=== PATIENT | male | born 2000 | race Two or more races ===

== ENCOUNTER 2024-02-01 21:54 | Emergency (ER) | payer BC, OTHER ==
[~2024-02-01] VITALS: Ht 180.3 cm; Wt 77.1 kg
[2024-02-01 22:02] VITALS: TEMP 98.2
[2024-02-01 22:32] LABS: BASOPHILS % (AUTO) 0.4 % (0.0-2.0); EOSINOPHILS # (AUTO) 0.1 K/uL (0.0-0.7); EOSINOPHILS % (AUTO) 2.2 % (0.0-6.0); HEMATOCRIT 39 % (39-51); HEMOGLOBIN 13.8 g/dL (13.5-17.5); LYMPHOCYTES # (AUTO) 2.6 K/uL (0.8-4.8); LYMPHOCYTES % (AUTO) 42.3 % (20.0-44.0); MEAN CORPUSCULAR HEMOGLOBIN 29 PG (26.0-33.0); MEAN CORPUSCULAR HGB CONC 36 g/dl (31.0-36.0); MEAN CORPUSCULAR VOLUME 82 fL (80-96); MONOCYTES # (AUTO) 0.3 K/uL (0.1-1.30); MONOCYTES % (AUTO) 4.4 % (2.0-12.0); NEUTROPHILS # (AUTO) 3.1 K/uL (1.8-8.9); NEUTROPHILS % (AUTO) 50.7 % (43.0-81.0); PLATELET COUNT (AUTO) 219 K/uL (150-450); RED BLOOD CELL COUNT(AUTO) 4.72 MIL/uL (4.5-6.0); WHITE BLOOD COUNT (AUTO) 6.2 K/uL (4.3-11.0)
[2024-02-01 22:47] LABS: ALBUMIN 3.7 g/dL (3.4-5.0); BILIRUBIN,DIRECT 0.1 mg/dL (0.0-0.2); BILIRUBIN,TOTAL 0.4 mg/dL (0.2-1.0); CALCIUM, SERUM 8.8 mg/dL (8.5-10.1); CREATININE 1.2 mg/dL (0.6-1.3); POTASSIUM 3.2 mmol/L (3.5-5.1); TOTAL PROTEIN, SERUM 7.3 g/dL (6.4-8.2)
[2024-02-01] MEDS ORDERED: ACETAMINOPHEN ES 500 MG TABLET ONE (23:11)
[2024-02-01] MEDS: ACETAMINOPHEN ES 500 MG TABLET PO ONE (23:15)
[2024-02-01] MEDS ORDERED: LEVETIRACETAM (500MG) 500 MG/5 ML VIAL IV ONE (23:18)
[2024-02-01] MEDS: LEVETIRACETAM (500MG) 2,000 MG in IV NS 0.9% 80 ML IV SCH (23:30)
[2024-02-02] MEDS ORDERED: POTASSIUM CHLORIDE 20 MEQ TAB.PRT.SR PO ONE (00:30)
[2024-02-02 05:23] VITALS: BP 144/83; O2SAT 99
== END 2024-02-02 00:42 | disposition home or self-care (01) ==
LOC: ER 21:56
DX: R56.9 Unspecified convulsions (principal)
CPT/HCPCS: 99284; 96365; 93005; 85025; 80048; 80076; 36415; J1953

== ENCOUNTER 2025-01-08 18:44 | Emergency (ER) | payer BC ==
[~2025-01-08] VITALS: Ht 175.3 cm; Wt 74.8 kg
[2025-01-08] MEDS ORDERED: NALOXONE PREFILLED SYRINGE 2 MG/2 ML SYRINGE ONE (19:12)
[2025-01-08] MEDS: NALOXONE HCL 0.4 MG/ML AMPUL IV ONE (19:23)
[2025-01-08] MEDS ORDERED: ONDANSETRON HCL/PF 4 MG/2 ML VIAL ONE (19:24)
[2025-01-08 19:25] VITALS: TEMP 98.6
[2025-01-08] MEDS: ONDANSETRON HCL/PF 4 MG/2 ML VIAL IVP ONE (19:34)
[2025-01-08] MEDS: IV NS 0.9% 1,000 ML BAG IV ONE (19:34)
[2025-01-08 21:41] VITALS: BP 137/88; O2SAT 95
== END 2025-01-08 21:44 | disposition home or self-care (01) ==
LOC: ER 18:46
DX: F11.20 Opioid dependence, uncomplicated (principal); R56.9 Unspecified convulsions; Z20.822 Contact with and (suspected) exposure to COVID-19
CPT/HCPCS: 99285; 96374; 96361; 96375; 93005; 71045; 82962; 87426; J2405; J7030; J2312